=== PATIENT | female | born 1995 | race Caucasian/White ===

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

== ENCOUNTER → 2017-04-08 | Outpatient (CLI) | payer OTHER | LOC: CIMAGING 15:46 | PROVIDERS: ATTEND Family Medicine | DX: N30.10 Interstitial cystitis (chronic) without hematuria (principal); R30.0 Dysuria | CPT/HCPCS: 76770-PO ==

== ENCOUNTER 2018-05-10 14:58 | Emergency (ER) | payer OTHER ==
[2018-05-10] MEDS ORDERED: IBUPROFEN 600 MG TAB PO ONE (15:15)
[2018-05-10] MEDS ORDERED: DIAZEPAM 5 MG TAB PO ONE (15:16)
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
[2018-05-10] MEDS ORDERED: predniSONE 20 MG TAB PO ONE (15:18)
[2018-05-10 16:31] VITALS: BP 127/74
== END 2018-05-10 16:31 | disposition home or self-care (01) ==
DX: M54.41 Lumbago with sciatica, right side (principal)
CPT/HCPCS: J7512